=== PATIENT | male | born 1985 | race Two or more races ===

== ENCOUNTER 2021-09-09 19:32 | Emergency (ER) | payer OTHER ==
[~2021-09-09] VITALS: Ht 175.3 cm; Wt 104.5 kg
[2021-09-09] MEDS ORDERED: ALBU8HFA IH (23:59)
[2021-09-09] MEDS ORDERED: LISI-894 PO (23:59)
[2021-09-09] MEDS ORDERED: ASPI-1444 PO (23:59)
[2021-09-09] MEDS ORDERED: HYDR25TA2 PO (23:59)
[2021-09-09] MEDS ORDERED: IBUP-2071 PO (23:59)
[2021-09-09] MEDS ORDERED: CETI-450 PO (23:59)
[2021-09-09] MEDS ORDERED: OMEP-99 PO (23:59)
[2021-09-10] MEDS ORDERED: IBUPROFEN 600 MG TABLET PO ONE
[2021-09-10] MEDS ORDERED: PERTUSS(ACELL),DIPH,TET VAC/PF 0.5 ML SYRINGE IM. ONE
[2021-09-10 01:24] VITALS: BP 132/88
== END 2021-09-10 01:30 | disposition home or self-care (01) ==
LOC: EMS 19:34
DX: S01.511A Laceration without foreign body of lip, initial encounter (principal); S16.1XXA Strain of muscle, fascia and tendon at neck level, initial encounter; I10 Essential (primary) hypertension; E78.00 Pure hypercholesterolemia, unspecified; K21.9 Gastro-esophageal reflux disease without esophagitis; Y04.0XXA Assault by unarmed brawl or fight, initial encounter; Y93.89 Activity, other specified; Y92.89 Other specified places as the place of occurrence of the external cause; Y99.8 Other external cause status
CPT/HCPCS: 70450; 72125; 90471; 90715; 99284